=== PATIENT | female | born 1975 | race Caucasian/White ===

== ENCOUNTER 2017-09-25 00:18 | Emergency (ER) | payer SELFPAY ==
[2017-09-25] MEDS: Morphine 2 mg/ml ISec IVP STA ×2 (01:11→01:14)
[2017-09-25] MEDS ORDERED: Morphine 2 mg/ml ISec IM STA (01:12)
[2017-09-25 01:25] LABS: PH,URINE 6.5 (4.7-8.0); URINE BILIRUBIN NEGATIVE (NEGATIVE); URINE BLOOD NEGATIVE (NEGATIVE); URINE GLUCOSE (UA) NEGATIVE (NEGATIVE); URINE LEUKOCYTE ESTERASE SMALL Leu/uL (NEGATIVE); URINE PROTEIN NEGATIVE mg/dL (<30 mg/dL); URINE UROBILINOGEN 0.2 E.U./dL (<1 E.U./dL)
[2017-09-25 01:26] LABS: URINE APPEARANCE CLEAR (CLEAR); URINE COLOR YELLOW (YELLOW)
[2017-09-25 01:27] LABS: BASO # 0.05 K/mm3 (0.0-2.0); BASO % 0.7 % (0.0-3.0); EOS # 0.1 (0.0-0.7); GRAN # 3.63 (1.4-6.5); GRAN % 51.6 % (50.0-68.0); HEMOGLOBIN 14.5 g/dL (12.0-16.0); LYMPH # 2.8 (1.2-3.4); LYMPH % 40.2 % (22.0-35.0); MEAN CELL VOLUME 89.5 fl (80.0-105.0); MEAN CORPUSCULAR HEMOGLOBIN 31.6 pg (25.0-35.0); MEAN CORPUSCULAR HGB CONC 35.3 g/dl (31.0-37.0); MEAN PLATELET VOLUME 9.1 fl (7.0-11.0); MONO # 0.5 (0.1-0.6); MONO % 6.5 % (1.0-6.0); RBC 4.59 10^6/uL (3.5-6.1); RED CELL DISTRIBUTION WIDTH 12.1 % (11.5-14.5)
[2017-09-25 01:36] LABS: ALB/GLOB RATIO 1.3 (1.1-1.8); ALBUMIN 4.4 g/dL (3.0-4.8); ALT/SGPT 37 U/L (7-56); AST/SGOT 45 U/L (14-36); BLOOD UREA NITROGEN 5 mg/dL (7-21); CALCIUM 8.9 mg/dL (8.4-10.5); GFR AFRICAN-AMERICAN > 60; GFR NON-AFRICAN AMERICAN > 60; LIPASE 100 U/L (23-300)
[2017-09-25 01:43] LABS: HCG,QUALITATIVE URINE NEGATIVE (NEGATIVE); URINE EPITHELIAL CELLS 0 - 2 /hpf (0-5); URINE RBC 0 - 2 /hpf (0-2)
[2017-09-25] MEDS ORDERED: Iohexol 350 MG/100 ML VIAL ONE (01:59)
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
[2017-09-25 05:22] VITALS: BP 130/75; PULSE 71; RESP 16; TEMP 98; O2SAT 99
--- NOTE | 2017-09-25 08:38 | RAD ---
HISTORY: COMPARISON: No prior. TECHNIQUE: Chest PA and lateral FINDINGS: LINES AND TUBES: None. LUNG AND PLEURA: The lungs are well inflated and clear. No pleural effusion or pneumothorax. HEART AND MEDIASTINUM: The heart is not enlarged. The hilar and mediastinal contours are within normal limits. SKELETAL STRUCTURES: The bony structures are within normal limits for the patient's age. VISUALIZED UPPER ABDOMEN: Normal. OTHER FINDINGS: None. IMPRESSION: No acute findings.
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
== END 2017-09-25 04:05 | disposition home or self-care (01) ==
LOC: ED 00:18
DX: T14.8XXA Other injury of unspecified body region, initial encounter (principal); Y04.0XXA Assault by unarmed brawl or fight, initial encounter; F17.210 Nicotine dependence, cigarettes, uncomplicated
CPT/HCPCS: 71046; 74177; 80053; 81001; 83690; 84703; 85025; 87086; 96372; 99283; G0480; J2270; Q9967

== ENCOUNTER 2017-09-30 01:28 | Emergency (ER) | payer OTHER ==
[2017-09-30 01:37] VITALS: BMI 26.5
[2017-09-30 01:42] VITALS: O2SAT 99
[2017-09-30] MEDS ORDERED: TDAP Vaccine 0.5 mL Syr IM ONE (01:57)
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
[2017-09-30 03:25] VITALS: BP 120/71; PULSE 90; RESP 18; TEMP 98
== END 2017-09-30 03:15 | disposition home or self-care (01) ==
LOC: ED 01:28
DX: S51.811A Laceration without foreign body of right forearm, initial encounter (principal); S51.812A Laceration without foreign body of left forearm, initial encounter; X99.1XXA Assault by knife, initial encounter; Y92.009 Unspecified place in unspecified non-institutional (private) residence as the place of occurrence of the external cause; Z23 Encounter for immunization

== ENCOUNTER 2017-10-26 22:08 | Emergency (ER) | payer OTHER ==
[2017-10-26 22:26] VITALS: BMI 23.4
[2017-10-26 22:30] VITALS: RESP 16
[2017-10-26] MEDS ORDERED: Sodium Chloride 0.9% 1,000 ML IV STA (22:54)
[2017-10-26 23:05] LABS: BASO # 0.02 K/mm3 (0.0-2.0); BASO % 0.2 % (0.0-3.0); EOS # 0.2 (0.0-0.7); EOS % 1.5 % (1.5-5.0); GRAN % 74.8 % (50.0-68.0); HEMOGLOBIN 14.9 g/dL (12.0-16.0); LYMPH % 16.2 % (22.0-35.0); MEAN CELL VOLUME 88.9 fl (80.0-105.0); MEAN CORPUSCULAR HEMOGLOBIN 31.3 pg (25.0-35.0); MEAN CORPUSCULAR HGB CONC 35.2 g/dl (31.0-37.0); MEAN PLATELET VOLUME 9.4 fl (7.0-11.0); MONO # 0.9 (0.1-0.6); MONO % 7.3 % (1.0-6.0); RBC 4.76 10^6/uL (3.5-6.1); RED CELL DISTRIBUTION WIDTH 12.1 % (11.5-14.5)
--- NOTE | 2017-10-26 23:05 | ED PDOC ---
Arrival/HPI - General Chief Complaint: Abdominal Pain Time Seen by Provider: 10/26/17 22:30 Historian: Patient - History of Present Illness Narrative History of Present Illness (Text): 10/26/17 23:05 A 42 year old female, whose past medical history includes a UTI and mitral valve insufficiency, presents to the emergency department complaining of severe suprapubic pain since suddenly 45 minutes ago. Patient reports pain is continually getting worse and is feeling feverish. Patient also notes pain upon urination. Patient reports there is no chance she is and her LNMP was today. Patient denies any chills, chest pain, shortness of breath, nausea, vomiting, diarrhea, back pain, neck pain, headache, dizziness, or any other complaints. PMD: Dr. Shaffer Time/Duration: Other (45 minutes ago) Symptom Onset: Sudden Symptom Course: Unchanged Activities at Onset: Light Context: Home Past Medical History - Provider Review Nursing Documentation Reviewed: Yes - Infectious Disease Hx of Infectious Diseases: None - Cardiac Other/Comment: "heart valve issues" - Psychiatric Hx Substance Use: No - Anesthesia Hx Anesthesia: No Family/Social History - Physician Review Nursing Documentation Reviewed: Yes Family/Social History: Unknown Family HX Smoking Status: Heavy Smoker > 10 Cigarettes Daily Hx Alcohol Use: Yes Hx Substance Use: No Allergies/Home Meds Allergies/Adverse Reactions: Allergies Histamine H2 Inhibitors Adverse Reaction (Verified 09/30/17 01:38) ITCHING Review of Systems - Physician Review All systems were reviewed & negative as marked: Yes - Review of Systems Constitutional: Fevers (feeling feverish) Respiratory: absent: SOB Cardiovascular: absent: Chest Pain Gastrointestinal: absent: Diarrhea, Nausea, Vomiting Genitourinary Female: Dysuria Musculoskeletal: absent: Neck Pain Physical Exam Vital Signs Temp Pulse Resp BP Pulse Ox 10/26/17 22:29 98.7 F 100 H 16 109/81 98 Temperature: Afebrile Blood Pressure: Normal Pulse: Tachycardic Respiratory Rate: Normal Appearance: Positive for: Well-Appearing, Non-Toxic, Comfortable Pain Distress: None Mental Status: Positive for: Alert and Oriented X 3 - Systems Exam Head: Present: Atraumatic, Normocephalic Pupils: Present: PERRL Extroacular Muscles: Present: EOMI Conjunctiva: Present: Normal Mouth: Present: Moist Mucous Membranes Neck: Present: Normal Range of Motion Respiratory/Chest: Present: Clear to Auscultation, Good Air Exchange. No: Respiratory Distress, Accessory Muscle Use Cardiovascular: Present: Regular Rate and Rhythm, Normal S1, S2. No: Murmurs Abdomen: Present: Tenderness (severe tenderness upon palpation of suprapubic region bilaterally). No: Distention, Normal Bowel Sounds, Peritoneal Signs, Rebound, Guarding, McBurney's Point Tender, Rovsing's Sign Present, Hernias, Feeding Tubes, Ostomy Tubes, Mass/Organomegaly, Scars Back: Present: Normal Inspection Upper Extremity: Present: Normal Inspection. No: Cyanosis, Edema Lower Extremity: Present: Normal Inspection. No: Edema Neurological: Present: GCS=15, CN II-XII Intact, Speech Normal Skin: Present: Warm, Dry, Normal Color. No: Rashes Psychiatric: Present: Alert, Oriented x 3, Normal Insight, Normal Concentration Medical Decision Making ED Course and Treatment: 10/26/17 23:10 Impression: 42 year old female presenting to the emergency department complaining of severe abdominal pain. Plan: -- Labs -- Chlamydia/GC RNA, TMA Stat -- Pyridium -- IV Fluids -- Urinalysis -- Reassess and disposition Prior Visits: Notes and results from previous visits were reviewed. Progress Notes: - Lab Interpretations Lab Results: 10/26/17 22:54 10/26/17 22:54 Lab Results 10/26/17 23:00: Urine Color Red, Urine Appearance Cloudy, Urine pH 6.5, Ur Specific [place] 1.025, Urine Protein >=300 H, Urine Glucose (UA) Negative, Urine Ketones Trace H, Urine Blood Large H, Urine Nitrate Positive H, Urine Bilirubin Small H, Urine Urobilinogen 2.0 H, Ur Leukocyte Esterase Moderate H, Urine RBC Pending, Urine WBC Pending 10/26/17 22:54: Sodium 144, Potassium 3.4 L, Chloride 102, Carbon Dioxide 25, Anion Gap 20, BUN 7, Creatinine 0.6 L, Est GFR ( Amer) > 60, Est GFR (Non -Af Amer) > 60, Random Glucose 111 H, Calcium 9.3, Total Bilirubin 0.4, AST 142 H D, ALT 181 H, Alkaline Phosphatase 73, Total Protein 8.1, Albumin 4.6, Globulin 3.5, Albumin/Globulin Ratio 1.3 10/26/17 22:54: PT 10.9, INR 0.96 10/26/17 22:54: WBC 12.0 H D, RBC 4.76, Hgb 14.9, Hct 42.3, MCV 88.9, MCH 31.3, MCHC 35.2, RDW 12.1, Plt Count 340, MPV 9.4, Gran % 74.8 H, Lymph % (Auto) 16.2 L, [place] % (Auto) 7.3 H, Eos % (Auto) 1.5, Baso % (Auto) 0.2, Gran # 9.00 H, Lymph # (Auto) 2.0, [place] # (Auto) 0.9 H, Eos # (Auto) 0.2, Baso # (Auto) 0.02 - Medication Orders Current Medication Orders: Sodium Chloride (Sodium Chloride 0.9%) 1,000 mls @ 999 mls/hr IV .Q1H1M STA Stop: 10/26/17 23:54 Last Admin: 10/26/17 23:14 Dose: 999 mls/hr eMAR Start Stop Document 10/26/17 23:14 LA (Rec: 10/26/17 23:14 [id number]) Intravenous Solution Start Date 10/26/17 Start Time 23:14 End Date 10/27/17 End time 00:15 Total Infusion Time 61 Ceftriaxone Sodium (Rocephin 2 Gm Ivpb) 2 gm in 100 mls @ 100 mls/hr IVPB STAT STA PRN Reason: Protocol Stop: 10/27/17 00:35 Discontinued Medications Phenazopyridine HCl (Pyridium) 200 mg PO STAT STA Stop: 10/26/17 22:55 Last Admin: 10/26/17 23:16 Dose: 200 mg - Scribe Statement The provider has reviewed the documentation as recorded by the Eddie Diaz All medical record entries made by the Eddie were at my direction and personally dictated by me. I have reviewed the chart and agree that the record accurately reflects my personal performance of the history, physical exam, medical decision making, and the department course for this patient. I have also personally directed, reviewed, and agree with the discharge instructions and disposition. Disposition/Present on Arrival - Present on Arrival Any Indicators Present on Arrival: No History of DVT/PE: No History of Uncontrolled Diabetes: No Urinary Catheter: No History of Decub. Ulcer: No History Surgical Site Infection Following: None - Disposition Have Diagnosis and Disposition been Completed?: Yes Diagnosis: UTI (urinary tract infection), Bladder spasms Disposition: HOME/ ROUTINE Disposition Time: 23:38 Patient Plan: Discharge Condition: GOOD Discharge Instructions (ExitCare): Urinary Tract Infection, Adult (DC), Bladder Spasms (DC) Additional Instructions: Nita - Drink 5 twenty ounce bottles of water- The pyridium will turn your urine very orange and it will stain your underwear. Wear a panty liner. Keflex is three times a day for ten days. Alessandro- Dr. Yobany Howard Forms: [employer] (Tajik)
[2017-10-26 23:07] LABS: INR 0.96; PROTHROMBIN TIME 10.9 SECONDS (9.4-12.5)
[2017-10-26 23:14] LABS: ALT/SGPT 181 U/L (7-56); CALCIUM 9.3 mg/dL (8.4-10.5)
[2017-10-26 23:18] LABS: PH,URINE 6.5 (4.7-8.0); URINE BILIRUBIN SMALL (NEGATIVE); URINE BLOOD LARGE (NEGATIVE); URINE GLUCOSE (UA) NEGATIVE (NEGATIVE); URINE LEUKOCYTE ESTERASE MODERATE Leu/uL (NEGATIVE); URINE PROTEIN >=300 mg/dL (<30 mg/dL)
[2017-10-26 23:20] LABS: URINE APPEARANCE CLOUDY (CLEAR); URINE COLOR RED (YELLOW)
[2017-10-26 23:23] LABS: ALB/GLOB RATIO 1.3 (1.1-1.8); ALBUMIN 4.6 g/dL (3.0-4.8); AST/SGOT 142 U/L (14-36); BLOOD UREA NITROGEN 7 mg/dL (7-21); GFR AFRICAN-AMERICAN > 60; GFR NON-AFRICAN AMERICAN > 60
[2017-10-26] MEDS ORDERED: cefTRIAXone 2 GM IN NS 2 GM/100 ML BAG IVPB STA (23:36)
[2017-10-26 23:46] LABS: URINE RBC TNTC /hpf (0-2)
[2017-10-26 23:47] LABS: URINE EPITHELIAL CELLS 0 - 2 /hpf (0-5)
[2017-10-26 23:48] LABS: URINE BACTERIA MOD (NEG)
[2017-10-27 00:51] VITALS: BP 110/72; PULSE 82; TEMP 98; O2SAT 100
== END 2017-10-27 00:51 | disposition home or self-care (01) ==
LOC: ED 22:08
DX: N39.0 Urinary tract infection, site not specified (principal); N32.89 Other specified disorders of bladder
CPT/HCPCS: 80053; 81001; 85025; 85610; 87086; 87491; 87591; 96360; 99284; J0696; J7030

== ENCOUNTER 2017-11-07 14:23 | Emergency (ER) | payer OTHER ==
[2017-11-07 14:39] VITALS: BMI 26.6
--- NOTE | 2017-11-07 15:07 | ED PDOC ---
Arrival/HPI - General Historian: Patient, Spouse - History of Present Illness Time/Duration: 1 week Symptom Onset: Sudden Symptom Course: Unchanged, Worsening Quality: Cramping, Burning Severity Level: 8 Activities at Onset: Rest Context: Exertion <Margarito Siegel - Last Filed: 11/07/17 17:51> <Micha Palacios - Last Filed: 11/07/17 17:56> - General Chief Complaint: Abdominal Pain Time Seen by Provider: 11/07/17 14:25 - History of Present Illness Narrative History of Present Illness (Text): 11/07/17 15:01 Patient is a 42 year old female with no PMH presents to ED with epigastric abdominal pain worsening over the past 1.5 weeks. She describes the pain as a burning, cramping type pain that is worse with exertion and radiates to her lower back. She states she hasn't taken any OTC medications for the pain. She admits to feeling anxious regularly and has not slept for the last 3 days. She denies other manic symptoms including audio/visual hallucinations but admits to a tremor if she does not drink. She admits to drinking at least 750 mL of whiskey and/or vodka a day. She admits that she used to drink more than that but has been trying to cut down. She admits to not having sufficient energy in the morning if she does not have a drink. She admits to smoking 1 PPD for at least 15 years. 11/07/17 16:00 (Margarito Siegel) Past Medical History - Provider Review Nursing Documentation Reviewed: Yes - Travel History Have you recently traveled outside [place] w/in the past 3 mons?: No - Infectious Disease Hx of Infectious Diseases: None - Cardiac Other/Comment: "heart valve issues" - Psychiatric Hx Substance Use: No - Anesthesia Hx Anesthesia: No <Margarito Siegel - Last Filed: 11/07/17 17:51> Family/Social History - Physician Review Nursing Documentation Reviewed: Yes Family/Social History: Hypertension (father) Smoking Status: Heavy Smoker > 10 Cigarettes Daily Hx Alcohol Use: Yes Hx Substance Use: No <Margarito Siegel - Last Filed: 11/07/17 17:51> Allergies/Home Meds <Margarito Siegel - Last Filed: 11/07/17 17:51> <Micha Palacios - Last Filed: 11/07/17 17:56> Allergies/Adverse Reactions: Allergies Histamine H2 Inhibitors Adverse Reaction (Verified 09/30/17 01:38) ITCHING Review of Systems - Review of Systems Constitutional: absent: Fatigue, Fevers Eyes: absent: Vision Changes ENT: absent: Sore Throat, Rhinorrhea Respiratory: absent: SOB, Cough Cardiovascular: absent: Chest Pain, LEIVA Gastrointestinal: Abdominal Pain, Nausea, Vomiting. absent: Stool Changes, Diarrhea Genitourinary Female: absent: Dysuria, Frequency Musculoskeletal: absent: Arthralgias Skin: absent: Rash, Pruritis Neurological: absent: Headache, Dizziness Endocrine: Diaphoresis Hemo/Lymphatic: absent: Adenopathy Psychiatric: Anxiety. absent: Depression, Suicidal Ideation <Margarito Siegel - Last Filed: 11/07/17 17:51> Physical Exam Vital Signs Reviewed: Yes Temperature: Afebrile Blood Pressure: Normal Pulse: Regular Respiratory Rate: Normal Appearance: Positive for: Ill-Appearing, Uncomfortable Pain Distress: Moderate Mental Status: Positive for: Alert and Oriented X 3 - Systems Exam Head: Present: Atraumatic, Normocephalic Pupils: Present: PERRL Extroacular Muscles: Present: EOMI Conjunctiva: Present: Normal Ears: Present: Normal Mouth: Present: Moist Mucous Membranes Pharnyx: Present: Normal. No: ERYTHEMA, EXUDATE Nose (External): Present: Atraumatic Neck: Present: Normal Range of Motion. No: JVD Respiratory/Chest: Present: Clear to Auscultation. No: Wheezes, Rales, Rhonchi Cardiovascular: Present: Regular Rate and Rhythm, Normal S1, S2. No: Murmurs, Rub, Gallop Abdomen: Present: Tenderness (worst in mid-epigastric region). No: Rebound, Guarding Back: Present: Normal Inspection. No: CVA Tenderness Upper Extremity: Present: Normal Inspection. No: Cyanosis Lower Extremity: Present: Normal Inspection. No: Edema Neurological: Present: Speech Normal Skin: Present: Warm, Dry Psychiatric: Present: Alert, Oriented x 3 <Margarito Siegel - Last Filed: 11/07/17 17:51> Vital Signs Temp Pulse Resp BP Pulse Ox 11/07/17 17:38 78 16 115/87 100 11/07/17 17:11 85 17 111/75 98 11/07/17 14:34 98.3 F 98 H 18 109/70 100 Medical Decision Making <Margarito Siegel - Last Filed: 11/07/17 17:51> - Lab Interpretations I have reviewed the lab results: Yes - EKG Interpretation Interpreted by ED Physician: Yes Type: 12 lead EKG <Micha Palacios - Last Filed: 11/07/17 17:56> ED Course and Treatment: 11/07/17 15:09 -Patient with history of heavy drinking with colicky, epigastric abdominal pain -Will get CBC, CMP, lipase, Mg -1L NS bolus, NPO diet -Protonix and zofran for symptomatic relief 11/07/17 17:05 -Patient states she feels better s/p protonix and zofran -Lipase 123, LFTs mildly elevated consistent with recent alcohol use but labs otherwise normal -Yeast also noted in urine, will give prescription for clotrimazole vaginal cream -Patient feels fine to go home at this time -Will discharge with protonix and zofran prescriptions -Recommended close PMD follow up and gave resources for alcoholism treatment centers (Margarito Siegel) 11/07/17 15:13 Patient Seen With Resident: In agreement with resident note which contains more details about the patient. Patient was seen and evaluated with resident. Came up with plan and treatment together. 11/07/17 15:13 EKG shows NSR at [address] elevations. Normal intervals. Interpreted by me. 11/07/17 17:54 On reevaluation, patient no longer had pain. Abdomen soft and not tender. Tolerating PO fluids. Also no signs of alcohol withdrawal after treatment. No tremors or tongue fasiculations. No slurred speech. No ataxia. She wants to go home. Will given a list of detox centers and she was advised to go for treatment due to her daily drinking. Also treated for yeast infection. She will f/u with her PMD or the [facility]. (Micha Palacios) - Lab Interpretations Lab Results: 11/07/17 14:50 11/07/17 14:50 Lab Results 11/07/17 15:46: Urine Opiates Screen Negative, Urine Methadone Screen Negative, Ur Barbiturates Screen Negative, Ur Phencyclidine Scrn Negative, Ur Amphetamines Screen Negative, U Benzodiazepines Scrn Negative, U Oth Cocaine Metabols Negative, U Cannabinoids Screen Negative 11/07/17 15:46: Urine Color Yellow, Urine Appearance Sl cloudy, Urine pH 7.0, Ur Specific Ward 1.015, Urine Protein 30 H, Urine Glucose (UA) Negative, Urine Ketones 40 H, Urine Blood Negative, Urine Nitrate Negative, Urine Bilirubin Moderate H, Urine Urobilinogen 1.0 H, Ur Leukocyte Esterase Trace H, Urine RBC 0 - 2, Urine WBC 2 - 5, Ur Epithelial Cells Many, Amorphous Sediment Few, Urine Bacteria Many, Urine Other Uyeast 11/07/17 14:50: Alcohol, Quantitative < 10 11/07/17 14:50: Sodium 140, Potassium 4.1, Chloride 100, Carbon Dioxide 25, Anion Gap 19, BUN 6 L, Creatinine 0.5 L, Est GFR ( Amer) > 60, Est GFR ( Non-Af Amer) > 60, Random Glucose 89, Calcium 9.6, Magnesium 1.8, Total Bilirubin 0.9, AST 96 H D, ALT 123 H, Alkaline Phosphatase 75, Total Protein 8.4 H, Albumin 4.6, Globulin 3.8, Albumin/Globulin Ratio 1.2, Lipase 123 11/07/17 14:50: WBC 6.7 D, RBC 4.76, Hgb 15.2, Hct 43.2, MCV 90.8, MCH 31.9, MCHC 35.2, RDW 12.4, Plt Count 470 H, MPV 9.1, Gran % 68.5 H, Lymph % (Auto) 21.6 L, [place]idan % (Auto) 8.7 H, Eos % (Auto) 0.6 L, Baso % (Auto) 0.6, Gran # 4.59 , Lymph # (Auto) 1.5, [place]idan # (Auto) 0.6, Eos # (Auto) 0.0, Baso # (Auto) 0.04 - EKG Interpretation EKG Interpretation (Text): 11/07/17 15:34 EKG with NSR without ST or T wave changes (Margarito Siegel) - Medication Orders Current Medication Orders: Discontinued Medications Sodium Chloride (Sodium Chloride 0.9%) 1,000 mls @ 999 mls/hr IV .Q1H1M STA Stop: 11/07/17 16:11 Last Admin: 11/07/17 15:15 Dose: 999 mls/hr eMAR Start Stop Document 11/07/17 15:15 SF (Rec: 11/07/17 16:17 SF [id number]) Intravenous Solution Start Date 11/07/17 Start Time 15:15 End Date 11/07/17 End time 16:16 Total Infusion Time 61 Ondansetron HCl (Zofran Inj) 4 mg IVP STAT STA Stop: 11/07/17 15:19 Last Admin: 11/07/17 16:15 Dose: 4 mg IVP Administration Document 11/07/17 16:15 SF (Rec: 11/07/17 16:15 SF [id number]) Charges for Administration # of IVP Administrations 1 Pantoprazole Sodium (Protonix Inj) 40 mg IVP STAT STA Stop: 11/07/17 15:30 Last Admin: 11/07/17 16:16 Dose: 40 mg IVP Administration Document 11/07/17 16:16 SF (Rec: 11/07/17 16:16 SF [id number]) Charges for Administration # of IVP Administrations 1 <Margarito Siegel - Last Filed: 11/07/17 17:51> - Scribe Statement The provider has reviewed the documentation as recorded by the Scribe <Micha Palacios - Last Filed: 11/07/17 17:56> - Scribe Statement Jose Marcelljoycelyn Provider Scribe Attestation: All medical record entries made by the Scribe were at my direction and personally dictated by me. I have reviewed the chart and agree that the record accurately reflects my personal performance of the history, physical exam, medical decision making, and the department course for this patient. I have also personally directed, reviewed, and agree with the discharge instructions and disposition. (Micha Palacios) Disposition/Present on Arrival - Present on Arrival Any Indicators Present on Arrival: No History of DVT/PE: No History of Uncontrolled Diabetes: No Urinary Catheter: No History of Decub. Ulcer: No History Surgical Site Infection Following: None - Disposition Have Diagnosis and Disposition been Completed?: Yes Disposition Time: 17:08 Patient Plan: Discharge <Margarito Siegel - Last Filed: 11/07/17 17:51> <Micha Palacios - Last Filed: 11/07/17 17:56> - Disposition Diagnosis: Alcohol abuse, Abdominal pain, Alcohol withdrawal, Vaginal yeast infection Disposition: HOME/ ROUTINE Condition: FAIR Discharge Instructions (ExitCare): Vaginal Yeast Infection (DC), Alcohol Abuse and Alcoholism (DC), Effects of Alcohol on Your Health Prescriptions: Clotrimazole 1% Vaginal [Lotrimin 1% Vaginal] 1 appl VG HS 14 Days #1 tube Ondansetron HCl [Zofran] 4 mg PO Q8H PRN 7 Days #20 tablet PRN Reason: Nausea/Vomiting Pantoprazole Sodium [Protonix] 40 mg PO DAILY 14 Days #14 tablet.dr Forms: [employer] (Indonesian)
[2017-11-07] MEDS ORDERED: Sodium Chloride 0.9% 1,000 ML IV STA (15:11)
[2017-11-07 15:15] VITALS: TEMP 98.3
[2017-11-07 15:25] LABS: BASO # 0.04 K/mm3 (0.0-2.0); BASO % 0.6 % (0.0-3.0); EOS % 0.6 % (1.5-5.0); GRAN # 4.59 (1.4-6.5); GRAN % 68.5 % (50.0-68.0); HEMOGLOBIN 15.2 g/dL (12.0-16.0); LYMPH # 1.5 (1.2-3.4); LYMPH % 21.6 % (22.0-35.0); MEAN CELL VOLUME 90.8 fl (80.0-105.0); MEAN CORPUSCULAR HEMOGLOBIN 31.9 pg (25.0-35.0); MEAN CORPUSCULAR HGB CONC 35.2 g/dl (31.0-37.0); MEAN PLATELET VOLUME 9.1 fl (7.0-11.0); MONO # 0.6 (0.1-0.6); MONO % 8.7 % (1.0-6.0); RBC 4.76 10^6/uL (3.5-6.1); RED CELL DISTRIBUTION WIDTH 12.4 % (11.5-14.5); WHITE BLOOD COUNT 6.7 10^3/ul (4.5-11.0)
[2017-11-07 16:28] LABS: ALB/GLOB RATIO 1.2 (1.1-1.8); ALBUMIN 4.6 g/dL (3.0-4.8); ALT/SGPT 123 U/L (7-56); AST/SGOT 96 U/L (14-36); BLOOD UREA NITROGEN 6 mg/dL (7-21); CALCIUM 9.6 mg/dL (8.4-10.5); GFR NON-AFRICAN AMERICAN > 60; LIPASE 123 U/L (23-300)
[2017-11-07 16:39] LABS: URINE BILIRUBIN MODERATE (NEGATIVE); URINE BLOOD NEGATIVE (NEGATIVE); URINE GLUCOSE (UA) NEGATIVE (NEGATIVE); URINE LEUKOCYTE ESTERASE TRACE Leu/uL (NEGATIVE); URINE PROTEIN 30 mg/dL (<30 mg/dL)
[2017-11-07 16:45] LABS: URINE APPEARANCE SL CLOUDY (CLEAR); URINE COLOR YELLOW (YELLOW)
[2017-11-07 17:04] LABS: BARBITURATES, UR NEGATIVE (NEGATIVE); BENZODIAZEPINES, UR NEGATIVE (NEGATIVE); OPIATES, UR NEGATIVE (NEGATIVE); PHENCYCLIDINE, UR NEGATIVE (NEGATIVE)
[2017-11-07 17:14] LABS: URINE BACTERIA MANY (NEG); URINE RBC 0 - 2 /hpf (0-2)
[2017-11-07 17:16] LABS: URINE AMORPHOUS SEDIMENT FEW; URINE EPITHELIAL CELLS MANY /hpf (0-5)
[2017-11-07 17:40] VITALS: BP 115/87; PULSE 78; RESP 16; O2SAT 100
--- NOTE | 2017-11-07 23:18 | CARD ---
APPROVED REPORT Date of service: 11/07/2017 EKG Measurement Heart [id number] <Conclusion> Normal sinus rhythm Normal ECG
== END 2017-11-07 17:38 | disposition home or self-care (01) ==
LOC: ED 14:23
DX: B37.3 Candidiasis of vulva and vagina (principal); F10.239 Alcohol dependence with withdrawal, unspecified; R10.13 Epigastric pain
CPT/HCPCS: 80053; 80320; 80324; 80345; 80346; 80349; 80353; 80358; 80361; 81001; 83690; 83735; 83992; 85025; 87086; 93005; 96361; 96374; 96375; 99285; C9113; J2405; J7030

== ENCOUNTER 2017-12-13 01:26 | Emergency (ER) | payer OTHER ==
[2017-12-13 01:28] VITALS: BMI 26.6
--- NOTE | 2017-12-13 01:35 | ED PDOC ---
Arrival/HPI - General Time Seen by Provider: 12/13/17 01:31 Historian: Patient, Spouse - History of Present Illness Narrative History of Present Illness (Text): 12/13/17 01:34 Nita Rush is a 42 year old female, whose past medical history includes alco hol abuse, who presents to the emergency department brought in by after taking multiple Zzzquil tablets. Patient reports she drank 2 beers and took multiple Zzzquil tablets tonight in an attempt to harm herself but when asked to quantify, patient stated "a lot, too many." During questioning, patient attempting to self-induce vomiting. Patient denies any chest pain, shortness of breath, abdominal pain, or any other complaints. Symptom Onset: Gradual Symptom Course: Unchanged Activities at Onset: Light Context: Home Past Medical History - Provider Review Nursing Documentation Reviewed: Yes - Infectious Disease Hx of Infectious Diseases: None - Cardiac Other/Comment: "heart valve issues" - Pulmonary Hx Respiratory Disorders: No - HEENT Hx HEENT Disorder: No - Hematological/Oncological Hx Blood Disorders: No - Integumentary Hx Dermatological Disorder: No - Musculoskeletal/Rheumatological Hx Musculoskeletal Disorders: No - Psychiatric Hx Substance Use: No - Anesthesia Hx Anesthesia: No Family/Social History - Physician Review Nursing Documentation Reviewed: Yes Family/Social History: Unknown Family HX Smoking Status: Heavy Smoker > 10 Cigarettes Daily Hx Alcohol Use: Yes Hx Substance Use: No Allergies/Home Meds Allergies/Adverse Reactions: Allergies Histamine H2 Inhibitors Adverse Reaction (Verified 12/13/17 01:40) ITCHING Home Medications: Home Meds Medication Instructions Recorded Confirmed RX: No Known Home Med 12/13/17 12/13/17 Review of Systems - Physician Review All systems were reviewed & negative as marked: Yes - Review of Systems Constitutional: Normal. absent: Fevers Eyes: Normal ENT: Normal Respiratory: Normal. absent: SOB, Cough Cardiovascular: Normal Gastrointestinal: Vomiting Genitourinary Female: Normal. absent: Dysuria, Frequency, Hematuria, Urine Output Changes Musculoskeletal: Normal. absent: Back Pain, Neck Pain Skin: Normal Neurological: Normal. absent: Headache, Dizziness Endocrine: Normal Hemo/Lymphatic: Normal Psychiatric: Suicidal Ideation Physical Exam Vital Signs Reviewed: Yes Temperature: Afebrile Blood Pressure: Normal Pulse: Regular Respiratory Rate: Normal Appearance: Positive for: Well-Appearing, Non-Toxic, Comfortable Pain Distress: None Mental Status: Positive for: Alert and Oriented X 3, Agitated - Systems Exam Head: Present: Atraumatic, Normocephalic Pupils: Present: PERRL Extroacular Muscles: Present: EOMI Conjunctiva: Present: Normal Mouth: Present: Moist Mucous Membranes Neck: Present: Normal Range of Motion Respiratory/Chest: Present: Clear to Auscultation, Good Air Exchange. No: Respiratory Distress, Accessory Muscle Use Cardiovascular: Present: Regular Rate and Rhythm, Normal S1, S2. No: Murmurs Abdomen: No: Tenderness, Distention, Peritoneal Signs Back: Present: Normal Inspection Upper Extremity: Present: Normal Inspection. No: Cyanosis, Edema Lower Extremity: Present: Normal Inspection. No: Edema Neurological: Present: GCS=15, CN II-XII Intact, Speech Normal Skin: Present: Warm, Dry, Normal Color. No: Rashes Psychiatric: Present: Alert, Oriented x 3, Agitated Medical Decision Making ED Course and Treatment: 12/13/17 01:34 Impression: 42 year old female brought in after ingesting multiple tablets of Zzzquil sleep aid. Plan: -- EKG -- Labs, alcohol level -- Urinalysis, urine drug screen -- Reassess and disposition Prior Visits: Notes and results from previous visits were reviewed. Progress Notes: 12/13/17 02:00 RN spoke with Poison Control, who recommended patient be monitored for seizure activity/seizure precautions, given Ativan PRN, EKG, IV fluids, and acetaminophen/salicylate/EtOH levels. 12/13/17 02:15 Reviewed EKG, NSR at 100 bpm[address] Non-specific ST/T wave changes. pt is medially stable and cleared by pes for dc - EKG Interpretation Interpreted by ED Physician: Yes Type: 12 lead EKG - Scribe Statement The provider has reviewed the documentation as recorded by the Perryibleonie Boogie Provider Scribe Attestation: All medical record entries made by the Scribe were at my direction and personally dictated by me. I have reviewed the chart and agree that the record accurately reflects my personal performance of the history, physical exam, medical decision making, and the department course for this patient. I have also personally directed, reviewed, and agree with the discharge instructions and disposition. Disposition/Present on Arrival - Present on Arrival Any Indicators Present on Arrival: No History of DVT/PE: No History of Uncontrolled Diabetes: No Urinary Catheter: No History Surgical Site Infection Following: None - Disposition Have Diagnosis and Disposition been Completed?: Yes Diagnosis: Anxiety Disposition: HOME/ ROUTINE Disposition Time: 06:00 Condition: GOOD Discharge Instructions (ExitCare): Anxiety, Adult (DC) Referrals: Otto Shaffer MD [Primary Care Provider] - Follow up with primary Forms: [employer] (Hungarian), WORK NOTE
[2017-12-13 01:42] VITALS: O2SAT 100
[2017-12-13] MEDS ORDERED: Sodium Chloride 0.9% 1,000 ML IV SCH (02:00)
[2017-12-13 02:12] LABS: BASO # 0.03 K/mm3 (0.0-2.0); BASO % 0.2 % (0.0-3.0); EOS # 0.2 (0.0-0.7); EOS % 1.2 % (1.5-5.0); GRAN # 8.34 (1.4-6.5); GRAN % 56.5 % (50.0-68.0); HEMOGLOBIN 14.7 g/dL (12.0-16.0); LYMPH # 5.5 (1.2-3.4); MEAN CELL VOLUME 90.4 fl (80.0-105.0); MEAN CORPUSCULAR HEMOGLOBIN 31.3 pg (25.0-35.0); MEAN CORPUSCULAR HGB CONC 34.7 g/dl (31.0-37.0); MEAN PLATELET VOLUME 9.7 fl (7.0-11.0); MONO # 0.8 (0.1-0.6); MONO % 5.1 % (1.0-6.0); RBC 4.69 10^6/uL (3.5-6.1); WHITE BLOOD COUNT 14.8 10^3/ul (4.5-11.0)
[2017-12-13 02:21] LABS: ACETAMINOPHEN < 10.0 ug/ml (10.0-20.0); SALICYLATE < 1 mg/dL (2.0-20.0)
[2017-12-13 02:23] LABS: ALB/GLOB RATIO 1.3 (1.1-1.8); ALBUMIN 4.8 g/dL (3.0-4.8); ALT/SGPT 28 U/L (7-56); AST/SGOT 48 U/L (14-36); BLOOD UREA NITROGEN 10 mg/dL (7-21); CALCIUM 9.7 mg/dL (8.4-10.5); GFR NON-AFRICAN AMERICAN > 60
[2017-12-13 02:50] LABS: URINE BILIRUBIN NEGATIVE (NEGATIVE); URINE BLOOD NEGATIVE (NEGATIVE); URINE GLUCOSE (UA) NEGATIVE (NEGATIVE); URINE LEUKOCYTE ESTERASE NEGATIVE Leu/uL (NEGATIVE); URINE PROTEIN NEGATIVE mg/dL (<30 mg/dL); URINE UROBILINOGEN 0.2 E.U./dL (<1 E.U./dL)
[2017-12-13 03:02] LABS: HCG,QUALITATIVE URINE NEGATIVE (NEGATIVE); URINE APPEARANCE CLEAR (CLEAR); URINE COLOR COLORLESS (YELLOW)
[2017-12-13 03:32] LABS: BARBITURATES, UR NEGATIVE (NEGATIVE); BENZODIAZEPINES, UR NEGATIVE (NEGATIVE); OPIATES, UR NEGATIVE (NEGATIVE); PHENCYCLIDINE, UR NEGATIVE (NEGATIVE)
[2017-12-13 03:51] VITALS: RESP 18; TEMP 98.2
[2017-12-13] MEDS ORDERED: Potassium Chloride 20 mEq ER Tab PO STA (06:40)
[2017-12-13 06:54] VITALS: BP 136/80; PULSE 85
--- NOTE | 2017-12-13 09:44 | RAD ---
HISTORY: od COMPARISON: Chest x-ray performed 09/25/17 TECHNIQUE: Chest, one view. FINDINGS: Examination limited by habitus. LUNGS: No focal consolidation. Please note that chest x-ray has limited sensitivity for the detection of pulmonary masses. PLEURA: No significant pleural effusion identified. No definite pneumothorax . CARDIOVASCULAR: Heart size appears within normal limits. OSSEOUS STRUCTURES: No acute osseous abnormality identified. VISUALIZED UPPER ABDOMEN: Unremarkable. OTHER FINDINGS: None. IMPRESSION: No focal consolidation, significant pleural effusion, or definite pneumothorax identified.
--- NOTE | 2017-12-13 13:56 | CARD ---
APPROVED REPORT Date of service: 12/13/2017 EKG Measurement Heart [id number] <Conclusion> Normal sinus rhythm RVCD NSSTW changes
== END 2017-12-13 06:53 | disposition home or self-care (01) ==
LOC: ED 01:26
DX: F41.9 Anxiety disorder, unspecified (principal)
CPT/HCPCS: 71045; 80053; 80320; 80324; 80329; 80345; 80346; 80349; 80353; 80358; 80361; 81003; 83735; 83992; 84703; 85025; 90791; 93005; 96361; 96374; 99284; J2405; J3480; J7030

== ENCOUNTER 2018-01-29 22:23 | Emergency (ER) | payer OTHER ==
[2018-01-29 22:24] VITALS: BMI 26.6
--- NOTE | 2018-01-29 23:32 | ED PDOC ---
Arrival/HPI <Robinson Riojas - Last Filed: 01/30/18 03:54> - General Historian: Patient - History of Present Illness Narrative History of Present Illness (Text): This is a 42 year old female with no significant PMH who presents with abdominal pain for the past 10 days, associated with right sided back pain. Pain is described as sharp, intermittent, across the lower abdomen, without exacerbating or alleviating factors. Pt has not taken anything for the pain. She also endorses right sided lower back pain and breast tenderness. Pt denies fever, chills, chest pain, sob, n/v/d, hematuria, dysuria, vaginal bleeding, vaginal discharge. Pt's POC urine hcg was positive. PMD: Saleeb FDLMP is 12/20/17. Pt is regular, with period occurring every month. PMH: mitral valve narrowing PSH: appendectomy, c/s 18 years ago, ovarian cyst removal in [place] many years ago Meds: none Allx: denies social hx: (+) daily etoh use, (+) smoking, (-) illicit drug use Time/Duration: Other (10 days) Symptom Course: Intermittent, Worsening Quality: Other (sharp) Associated Symptoms (Text): 01/30/18 00:23 right sided back pain <Jeff Pop - Last Filed: 01/30/18 04:16> - General Chief Complaint: Abdominal Pain Past Medical History - Provider Review Nursing Documentation Reviewed: Yes - Infectious Disease Hx of Infectious Diseases: None - Cardiac Other/Comment: "heart valve issues" - Pulmonary Hx Respiratory Disorders: No - HEENT Hx HEENT Disorder: No - Hematological/Oncological Hx Blood Disorders: No - Integumentary Hx Dermatological Disorder: No - Musculoskeletal/Rheumatological Hx Musculoskeletal Disorders: No - Psychiatric Hx Anxiety: Yes Hx Depression: Yes Hx Substance Use: No - Anesthesia Hx Anesthesia: No <Jeff Pop - Last Filed: 01/30/18 04:16> Family/Social History - Physician Review Nursing Documentation Reviewed: Yes Family/Social History: Unknown Family HX Smoking Status: Heavy Smoker > 10 Cigarettes Daily Hx Alcohol Use: Yes Hx Substance Use: No <Jeff Pop - Last Filed: 01/30/18 04:16> Allergies/Home Meds <Robinson Riojas - Last Filed: 01/30/18 03:54> <Jeff Pop Last Filed: 01/30/18 04:16> Allergies/Adverse Reactions: Allergies Histamine H2 Inhibitors Adverse Reaction (Verified 12/13/17 01:40) ITCHING Review of Systems - Review of Systems Constitutional: Normal Eyes: Normal ENT: Normal Respiratory: Normal Cardiovascular: Normal Gastrointestinal: Abdominal Pain Genitourinary Female: Normal Musculoskeletal: Normal Skin: Normal Neurological: Normal Endocrine: Normal Hemo/Lymphatic: Normal Psychiatric: Normal <Jeff Pop Last Filed: 01/30/18 04:16> Physical Exam Vital Signs Temp Pulse Resp BP Pulse Ox 01/29/18 23:34 98.6 F 126 H 18 163/97 H 100 <Robinson Riojas Last Filed: 01/30/18 03:54> Vital Signs Reviewed: Yes Temperature: Afebrile Blood Pressure: Hypertensive Pulse: Tachycardic Respiratory Rate: Normal Appearance: Positive for: Well-Appearing, Non-Toxic Pain Distress: None Mental Status: Positive for: Alert and Oriented X 3 - Systems Exam Head: Present: Atraumatic, Normocephalic Extroacular Muscles: Present: EOMI Mouth: Present: Moist Mucous Membranes Respiratory/Chest: Present: Clear to Auscultation. No: Respiratory Distress, Wheezes, Rales, Retracting, Rhonchi, Tachypneic Cardiovascular: Present: Normal S1, S2, Tachycardic Abdomen: Present: Tenderness (mild suprapubic tenderness, mild llq tenderness), Normal Bowel Sounds. No: Distention, Peritoneal Signs, Rebound, Guarding, Hernias Back: Present: Normal Inspection. No: CVA Tenderness, Midline Tenderness, Paraspinal Tenderness Upper Extremity: Present: Normal Inspection, NORMAL PULSES, Capillary Refill < 2s. No: Edema Lower Extremity: Present: Normal Inspection, NORMAL PULSES, Capillary Refill < 2 s. 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 Aware and agree with HPI, clinical findings, plan, and management. Pt, with no significant past medical history, presented for abdominal pain, right-sided back pain, and some breast discomfort. Plan: -- Transvaginal US -- Labs, Beta-HCG, lipase -- UA -- Reassess and disposition - Lab Interpretations Lab Results: Lab Results 01/30/18 00:12: Blood Type Pending, Antibody Screen Pending, BBK History Checked No verified bt - RAD Interpretation Narrative RAD Interpretations (Text): Transvaginal US: Uterus Single Live intrauterine gestation. CRL is 0.31 cm equivalent to 5 weeks 6 days gestation. Gestational sac diameter is 1.5 cm equivalent to 5 weeks 6 days gestation. Yolk sac is 0.23 cm. Heart rate: 119.6 bpm. Theresa-gestational hemorrhage: None. Uterus measures 10.6 x 5.1 x 7.4 cm. No mass. Cervix Cervical cyst present. Right Ovary Measures 2.7 x 2.3 x 2.6 cm. No mass. Normal flow. Left Ovary Measures 4.9 x 3.2 x 4.4 cm. Cyst measuring 3.1 x 2.5 x 2.9 cm. Normal flow. Free Fluid None. Other Findings None. Impression Single live intrauterine gestation - 5 weeks 6 days gestation. Heart rate is 119.6 beats per minute. Cervical cyst. Left ovarian cyst. Electronically signed on Jan 30, 2018 1:39:23 AM EST by: Papo Mathis M.D., SARAH Certified By ABR & CBC[facility] Fellowship Trained MRI and CT Specialist Radiology Orders: 01/29/18 23:42 TRANSVAGINAL [US] Stat Belt Loop Cutter: Radiologist - Medication Orders Current Medication Orders: Sodium Chloride (Sodium Chloride 0.9%) 1,000 mls @ 999 mls/hr IV .Q1H1M STA Stop: 01/30/18 01:16 <Robinson Riojas - Last Filed: 01/30/18 03:54> ED Course and Treatment: 01/30/18 00:25 lower abdominal pain in 42 year old female with (+) POC urine test CBC, CMP, quantitative serum HCG, UA, lipase, type and screen, transvaginal US NS IVF 1L bolus Tylenol 650 mg PO for pain Kdur 20 meq PO for potassium of 3.3 01/30/18 03:20 Macrobid for UTI. On re-evaluation, pt reports improvement of pain. Pt is not tachycardic, no chest pain. Pt has had no vomiting, and remains afebrile. Discussed with pt need for follow up with obgyn 1 week within discharge, and she will be provided with a referral. Pt instructed to take Tylenol OTC every 6 hours as needed, but not to exceed daily maximum dose. Pt understands and agrees with discharge plan. Reassessment Condition: Improved - Lab Interpretations Interpretation: Abnormal lab values (leuk esterase on urine, potassium 3.3) <Jeff Pop - Last Filed: 01/30/18 04:16> - PA / HEEL SEAT POUNDER / Resident Statement EVELINA has reviewed & agrees with the documentation as recorded. EVELINA has examined the patient and agrees with the treatment plan. <Robinson Riojas - Last Filed: 01/30/18 03:54> Disposition/Present on Arrival <Robinson Riojas - Last Filed: 01/30/18 03:54> - Present on Arrival Any Indicators Present on Arrival: No History of DVT/PE: No History of Uncontrolled Diabetes: No Urinary Catheter: No History of Decub. Ulcer: No History Surgical Site Infection Following: None - Disposition Have Diagnosis and Disposition been Completed?: Yes Disposition Time: 03:23 Patient Plan: Discharge <Jeff Pop - Last Filed: 01/30/18 04:16> - Disposition Diagnosis: UTI (urinary tract infection) during , Normal in first trimester Disposition: HOME/ ROUTINE Patient Problems: Current Active Problems Problem Status Onset Normal in first trimester Acute UTI (urinary tract infection) during Acute Condition: STABLE Discharge Instructions (ExitCare): Medications and , Weight Gain During , Urinary Tract Infection, Adult (DC), Activity During , Care, - The First Month, - The Second Month, - The Third Month Prescriptions: Nitrofurantoin Macrocrystals [Macrobid] 100 mg PO BID #6 cap Referrals: Otto Shaffer MD [Primary Care Provider] - Follow up with primary Otto Nascimento MD [Staff Provider] - Follow up with primary Forms: On[employer] Images ([place])
[2018-01-29 23:35] VITALS: RESP 18; TEMP 98.6; O2SAT 100
[2018-01-30] MEDS ORDERED: Sodium Chloride 0.9% 1,000 ML IV STA (00:16)
[2018-01-30 00:44] LABS: BASO # 0.02 K/mm3 (0.0-2.0); BASO % 0.2 % (0.0-3.0); EOS # 0.1 (0.0-0.7); EOS % 0.9 % (1.5-5.0); GRAN # 6.21 (1.4-6.5); GRAN % 62.5 % (50.0-68.0); HEMOGLOBIN 14.2 g/dL (12.0-16.0); LYMPH # 2.8 (1.2-3.4); MEAN CELL VOLUME 92.7 fl (80.0-105.0); MEAN CORPUSCULAR HEMOGLOBIN 31.6 pg (25.0-35.0); MEAN CORPUSCULAR HGB CONC 34.1 g/dl (31.0-37.0); MONO # 0.8 (0.1-0.6); MONO % 8.4 % (1.0-6.0); RBC 4.5 10^6/uL (3.5-6.1); RED CELL DISTRIBUTION WIDTH 13.2 % (11.5-14.5); WHITE BLOOD COUNT 9.9 10^3/uL (4.5-11.0)
[2018-01-30 00:57] LABS: ALB/GLOB RATIO 1.2 (1.1-1.8); ALBUMIN 4.5 g/dL (3.0-4.8); ALT/SGPT 23 U/L (7-56); AST/SGOT 45 U/L (14-36); BLOOD UREA NITROGEN 8 mg/dL (7-21); CALCIUM 9.6 mg/dL (8.4-10.5); GFR NON-AFRICAN AMERICAN > 60; LIPASE 122 U/L (23-300)
[2018-01-30 03:02] LABS: PH,URINE 6.5 (4.7-8.0); URINE BILIRUBIN NEGATIVE (NEGATIVE); URINE BLOOD TRACE-LYSED (NEGATIVE); URINE GLUCOSE (UA) NEGATIVE (NEGATIVE); URINE LEUKOCYTE ESTERASE TRACE Leu/uL (NEGATIVE); URINE PROTEIN NEGATIVE mg/dL (<30 mg/dL); URINE UROBILINOGEN 0.2 E.U./dL (<1 E.U./dL)
[2018-01-30 03:07] LABS: URINE APPEARANCE CLEAR (CLEAR); URINE COLOR YELLOW (YELLOW)
[2018-01-30] MEDS ORDERED: Potassium Chloride 20 mEq ER Tab PO STA (03:10)
[2018-01-30 03:20] LABS: URINE RBC 0 - 2 /hpf (0-2); URINE WBC 0 - 2 /hpf (0-6)
[2018-01-30 03:21] LABS: URINE BACTERIA SMALL (NEG)
[2018-01-30 05:24] VITALS: BP 130/75; PULSE 88
--- NOTE | 2018-01-30 11:36 | US ---
Date of service: 01/30/2018 PROCEDURE: First trimester ultrasound HISTORY: lower abdominal pain, (+) qual urine hcg COMPARISON: None TECHNIQUE: Standard protocol for this study/examination. FINDINGS: LMP: 12/20/2017. Prior examinations from the current : None TECHNIQUE: Real-time 2D imaging, duplex and color Doppler. FINDINGS: Cardiac activity: Present Rate: 119 BPM Measurements: [place] rump length: 0.31 cm Gestational age based on CRL 5 weeks 6 days Gestational age 5 weeks 6 days based on gestational sac measurement 1.50 cm Gestational age derived from LMP: 5 weeks 6 days MONTY based on LMP: 09/26/2018 screen on biometry: 09/26/2018 Gestational concordance documented Yolk sac identified Cervix: No Cervical abnormalities: Negative examination for cervical dilatation or effacement. Subchorionic hemorrhage: None UTERUS: 5.1 x 7.4 x 10.6 cm. ADNEXA: Right: 2.3 x 2.6 x 2.7 cm. Normal Doppler arterial waveform documented. Left: 3.2 x 4.44 cm. Simple cyst 2.5 x 2.9 cm. Normal Doppler arterial waveform documented Fluid in the cul-de-sac: None. Incidental finding: Nabothian cysts the largest measures 1.2 cm IMPRESSION: Five weeks 6 days live intrauterine gestation. Concordant results (preliminary interpretation) provided by [employer]. Procedure Completed: 01:06 Preliminary Report: Dictated and Authenticated: 01:39. Final Interpretation: 11:32. January 30, 2018
== END 2018-01-30 03:50 | disposition home or self-care (01) ==
LOC: ED 22:23
DX: O23.41 Unspecified infection of urinary tract in pregnancy, first trimester (principal); Z3A.01 Less than 8 weeks gestation of pregnancy
CPT/HCPCS: 76817; 80053; 81001; 83690; 84702; 85025; 86850; 86900; 99283; J7030